=== PATIENT | female | born 1985 | race Caucasian/White ===

== ENCOUNTER 2022-04-02 01:56 | Day surgery (SDC) | payer OTHER, SELFPAY ==
[2022-03-20 12:38] VITALS: BMI 41.5
--- NOTE | 2022-03-20 12:44 | PC.NURSE ---
Report to the Outpatient Waiting Room, entrance under the green pavilion located off [facility], at time 0830 on date 04/02/22. Planned Procedure Time: 1030. Time changes happen often and if your time is changed the preop area will call you the afternoon before. - You and your visitor will be asked to self-screen and do not enter if you have any COVID symptoms. - Only one visitor is requested with a max of two and NO children visitors are allowed at this time. - The patient visitor may be requested to leave or wait in car when not with patient due to distancing restrictions. - A mask is REQUIRED within the hospital. Patients may have clear liquids (water, carbonated beverages, clear teas, apple juice) until 3 hours prior to surgery with a maximum of 20 ounces. - No food from midnight until time of surgery Take the following medications with a SIP of water the morning of surgery: NONE Medications to discontinue per physician: N/A Date to take last dose: N/A Please no make-up, nail swedish, hairspray, perfume, deodorant, or body powder the day of surgery. No jewelry (including any body piercings) or valuables the day of surgery, leave them at home. Please take a shower or bath the night before, or the morning of, surgery with an antibacterial soap. Wear comfortable, loose fitting clothing. - Jewelry must be removed prior to entering the operating room. Rings and piercings that are not removed may be cut off. - The hospital will not accept responsibility for valuables. - Please leave all valuables, including medications, at home the day of surgery. If you are going home after surgery, a licensed cdl bulk driver must drive you home. - NO public transportation without another adult if you receive anesthesia. - We recommend that an adult stay with you for 24 hours following discharge. - We also recommend that you do not drive, make important decision, drink alcoholic beverages, or take any drugs that were not prescribed by your health care provider for at least 24 hours after your discharge time. Follow any additional instructions given to you from your surgeon. If you or anyone in your household have experienced Covid symptoms in the past week, please notify your surgeon or the nurse liaison at the phone number below for possible testing. Telephone instructions given to PT - CRISTIANO ALVARADO and asked if any additional questions and then verbalized understanding. Patient advised to call surgeon office or pre surgery nurse liaison [phone] if any additional questions.
--- NOTE | 2022-04-01 11:20 | PM.IMHP ---
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 She has been on Ogestrel for like 20 years in a continuous fashion. She moved to the [place] during and did not establish care with an OBGYN. She has been seeing a PCP who started her on Sprintec since about 2019. She reports it was doing ok; started having some regular cycles every 3 weeks (but was skipping placebo); but the bleeding has gotten worse since this summer; now bleeds more than not. She reports a h/o significant pain (cannot take ibuprofen due to significant facial swelling) and that multiple family members have endometriosis and underwent hysterectomies. She does not desire children. She has been sexually active in the past; not currently. She reports a h/o HPV about 6yrs ago; paps have been normal since. She is not wanting to stop hormones as she reports severe pain, body aches, low grade fevers when she's off of it. She has not had blood work or US in many years. Labs were performed and showed mildly elevated TSH, normal hormones otherwise. US showed an endometrial strip of 1cm that was irregular; bulbous uterus. Review of Systems Constitutional: Constitutional: Denies chills, Denies fever(s) and Denies headache(s) Eyes: Eyes: Denies change in vision ENT: Denies dizziness and Denies headache(s) Cardiovascular: Cardiovascular: Denies chest pain and Denies dyspnea Respiratory: Respiratory: Denies cough and Denies dyspnea Gastrointestinal: Gastrointestinal: Denies abdominal pain and Denies change in stool character Genitourinary: Genitourinary: Reports abnormal menses, Reports abnormal vaginal bleeding, Reports menorrhagia, Reports dysmenorrhea, Reports pelvic pain, Denies vaginal discharge, Denies vaginal odor and Denies vaginal pruritus Neurologic: Denies dizziness and Denies headache(s) Psychiatric: Psychiatric: Denies anxiety and Denies depression [facility] Past Medical History Medical History (Updated 02/05/22 @ 08:51 by Kadi Wright MA) Anxiety Asthma Depression Irregular bleeding Low TSH level Surgical History Surgical History S/P tonsillectomy Family History Family History Mother Endometriosis Multiple sclerosis Father Malignant neoplasm of prostate Other Breast cancer Social History Social History (Updated 01/29/22 @ 09:34 by Kadi Wright MA) Smoking status: Never smoker Alcohol intake: current Drinks per week: 1 Alcohol use details: VERY RARE Substance use: never Substance use type: does not use Lack of Transportation: No Lack of Food: Never True Current Housing: Decline to Answer Concerned About Future Housing: Decline to Answer Difficulty Paying Gas/Electric Bills: Decline to Answer Difficulty Paying for Meds: Decline to Answer Currently Unemployed: Decline to Answer Education: Master's Degree or Higher Difficulty w/ Childcare or Family Care: Decline to Answer Living arrangements: alone 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 Gender identity (if verbalized by the patient): Female Sexual Orientation (if Verbalized by the Patient): Bisexual Spiritual care concerns: No Meds Home Medications and Allergies Home Medications Medication Instructions Recorded Confirmed Type montelukast 10 mg tablet 10 mg PO DAILY 01/29/22 03/20/22 History norgestrel 0.3 mg-ethinyl 1 tablet PO DAILY #168 tabs 02/05/22 03/20/22 Rx estradiol 30 mcg tablet (Low-Ogestrel (28)) fluticasone propionate 50 1 spray intranasal Q12H 03/20/22 03/20/22 History mcg/actuation nasal spray,suspension Allergies Allergy/AdvReac Type Severity Reaction Status Date / Time amoxicillin Allergy Severe Rash Verified 03/20/22 12:3
--- NOTE | 2022-04-02 08:12 | WPDHPUPDATE1 ---
History and Physical Update Update Date/Time: 04/02/22 08:12 History and Physical has been reviewed, including an updated exam of the patient. There are NO changes in the patient's condition. Risks, benefits, and alternatives have been discussed and questions answered. Patient agrees to proceed with procedure.
--- NOTE | 2022-04-02 08:42 | WPDANESEPPF ---
Anes - Initial Pre Proc Eval Procedure: Operation Date: 04/02/22 10:30 Proposed Procedures p Hysteroscopy with Dilation and Curettage - Anupama Robles MD Date/Time: 04/02/22 08:42 Surgeon: Anupama Robles MD Pre Op Diagnosis: Menometrorrhagia Patient Data Age: 36 Gender: F Height: 1.7 m Weight: 120.2 kg Allergies Allergy/AdvReac Type Severity Reaction Status Date / Time amoxicillin Allergy Severe Rash Verified 03/20/22 12:36 ibuprofen Allergy Severe Swelling Verified 03/20/22 12:36 of Lip/Tongue/Throat Penicillins Allergy Severe Rash Verified 03/20/22 12:36 Home Medications Medication Instructions Recorded Confirmed Type montelukast 10 mg tablet 10 mg PO DAILY 01/29/22 03/20/22 History norgestrel 0.3 mg-ethinyl 1 tablet PO DAILY #168 tabs 02/05/22 03/20/22 Rx estradiol 30 mcg tablet (Low-Ogestrel (28)) fluticasone propionate 50 1 spray intranasal Q12H 03/20/22 03/20/22 History mcg/actuation nasal spray,suspension Patient hx anesthesia problems: none Family hx anesthesia problems: none Results Review: All pre-operative results and documents have been reviewed as part of the pre-operative evaluation. [facility] Past Medical History Medical History (Updated 04/02/22 @ 08:43 by Travis Alarcon MD) Anxiety Asthma Depression Irregular bleeding Low TSH level Morbid obesity Surgical History Surgical History S/P tonsillectomy Family History Family History Mother Endometriosis Multiple sclerosis Father Malignant neoplasm of prostate Other Breast cancer Social History Social History Smoking status: Never smoker Alcohol intake: current Drinks per week: 1 Alcohol use details: VERY RARE Substance use: never Substance use type: does not use Lack of Transportation: No Lack of Food: Never True Current Housing: Decline to Answer Concerned About Future Housing: Decline to Answer Difficulty Paying Gas/Electric Bills: Decline to Answer Difficulty Paying for Meds: Decline to Answer Currently Unemployed: Decline to Answer Education: Master's Degree or Higher Difficulty w/ Childcare or Family Care: Decline to Answer Living arrangements: alone 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 Gender identity (if verbalized by the patient): Female Sexual Orientation (if Verbalized by the Patient): Bisexual Spiritual care concerns: No Anes - Eval Final PreProcedure Day of Procedure 04/02/22 08:42 Patient weight: morbidly obese Heart: regular rate and rhythm Lungs: clear to auscultation Airway: Mallampati scale class II Neurological: alert and oriented Last oral intake: >/= 8 hours ASA classification: III Emergent: no Anesthetic plan: proceed Anesthesia type and monitoring: general GIVS and standard monitoring Results Review: All pre-operative results and documents have been reviewed as part of the pre-operative evaluation. Informed Consent: The patient's anesthetic plan and its attendant risks and benefits were discussed with the patient/family/POA. Questions were solicited and answers provided to the satisfaction of the patient/family/POA.
[2022-04-02 08:55] VITALS: BP 141/95; PULSE 87; RESP 14; TEMP 36.9; O2SAT 99
[2022-04-02] MEDS: LACTATED RINGERS 1,000 ML 30 ML IV CONT (08:55)
--- NOTE | 2022-04-02 09:29 | W.PM.PROC2 ---
Procedure Note - Detailed Date of Procedure 04/02/22 Pre-op Diagnosis Menometrorrhagia Post-op Diagnosis Same Procedure Performed Hysteroscopy with D&C Surgeon Anupama Robles MD Anesthesia MAC Findings Uterus 11cm; thickened, polypoid endometrium noted mostly on posterior uterine wall. Bilateral tubal ostia visualized. Normal cervix. Good hemostasis at end of case. Fluid deficit 50cc. Description of Procedure Rama was taken to the operating room where she was placed under sedation without complications. She was then prepped and draped in the usual sterile fashion in the dorsal lithotomy position with her legs in low Samm stirrups. A time-out was performed and no perioperative antibiotics were indicated. A bivalve speculum was placed within the vagina where the cervix was easily identified. The anterior lip of the cervix was grasped with a single-tooth tenaculum. The uterus was sounded. The cervix was then serially dilated to allow for the hysteroscope. The hysteroscope was advanced into the uterine cavity with the above findings noted. A curettage was then performed until a good uterine cry was felt throughout the uterus. The hysteroscope was once again advanced into the uterine cavity where it was noted to be normal. Good hemostasis was noted. All instruments were removed from the vagina. Sponge, lap, instrument, and needle counts were correct at the end of the procedure. Patient was awoken from anesthesia and taken to recovery with plans of same-day discharge home. Estimated Blood Loss 5 Pathology Yes (endometrial curettings) Complications No immediate complications Condition Stable Disposition Same day [facility] Billing Surgery - Charge Forward: Surgery Billing
[2022-04-02 09:30] VITALS: BP 120/80; PULSE 88; RESP 16; O2SAT 95
[2022-04-02 10:00] VITALS: BP 125/87; PULSE 80; RESP 16; O2SAT 96
[2022-04-02 10:25] VITALS: BP 133/83; PULSE 74; RESP 16
[2022-04-02] MEDS: NAPROXEN SODIUM 220 MG TABLET PO (10:25)
== END 2022-04-02 10:42 | disposition home or self-care (01) ==
PROVIDERS: Visit Provider Obstetrics & Gynecology
PROC: 0U5B8ZZ Destruction of Endometrium, Via Natural or Artificial Opening Endoscopic (ICD-10-PCS; CPT 58563; principal; 2022-04-02 10:30)
DX: N92.1 Excessive and frequent menstruation with irregular cycle (principal); N84.0 Polyp of corpus uteri; R10.2 Pelvic and perineal pain; G89.29 Other chronic pain; J45.909 Unspecified asthma, uncomplicated; E66.01 Morbid (severe) obesity due to excess calories; Z68.41 Body mass index [BMI] 40.0-44.9, adult
CPT/HCPCS: 58558; 88305; A9270; J0131; J1100; J2250; J2405; J2704; J3010; J7030; J7120

== ENCOUNTER 2022-05-28 09:40 | Outpatient (CLI) | payer OTHER, SELFPAY ==
[2022-05-28 20:23] LABS: Free T4 Free Thyroxine 0.96 ng/mL (0.78-2.19)
[2022-06-01 05:14] LABS: Thyroid Peroxidase Antibodies 839 IU/mL (<9)
== END 2022-05-28 09:41 | disposition home or self-care (01) ==
LOC: ANHWCLAB 09:40
PROVIDERS: Visit Provider Internal Medicine Endocrinology, Diabetes & Metabolism
DX: E03.8 Other specified hypothyroidism (principal); E04.9 Nontoxic goiter, unspecified
CPT/HCPCS: 36415; 84439; 84443; 84481; 86376

== ENCOUNTER 2024-11-09 12:24 | Outpatient (CLI) | payer OTHER, SELFPAY ==
--- NOTE | ~2024-11-09 | MM_ITS ---
EXAMINATION: MM screening gin BI w zena HISTORY: Screening mammogram TECHNIQUE: Craniocaudal and mediolateral oblique 3-D tomosynthesis images were obtained and synthetic 2-D images were generated. CAD analysis was submitted and interpreted. COMPARISON: No prior mammogram is available for comparison at this institution. BREAST PARENCHYMAL COMPOSITION:Not Dense. There are scattered areas of fibroglandular density. FINDINGS: No suspicious mass, calcification, or architectural distortion are identified in either sheeba ast to suggest malignancy. There has been no suspicious interval change. IMPRESSION: No mammographic evidence of malignancy. Recommend routine screening mammography in one year. BI-RADS Category 1: Negative Reviewed, dictated and finalized at location .
--- OUTSIDE RECORDS SUMMARY | 2024-11-09 13:12 | XMS_ITS | Clinical Summary ---
Author Organization [facility] Address [address] [place] [address] Care Team Providers Care Glassine Machine Tender Name Role Phone Unavailable Primary Care Provider Unavailabl e Source Comments [facility],non-owned Affiliates and Associated Physician Practices is amultiple site organization consisting of ambulatory clinics and hospital sitesin [place], [place], [place] and [place]. This disclosure is being madepursuant to the Care Everywhere program and may not contain all information available regarding this patient. Last updated 17.[email or web address] [email or web address] Social History Tobacco Use Types Packs/Day Years Used Date Smoking Tobacco: Never Assessed Comments Unknown Sex and Gender Information Value Date Recorded Sex Assigned at Not on file Legal Sex Female 2:46 PM CDT Gender Identity Not on file Sexual Orientation Not on file Plan of Treatment Health Maintenance Due Date Last Done Comments LIPID TESTING 1984 MAMMOGRAM 1984 HIV SCREENING 08/08/1999 HEPATITIS C SCREENING 08/03/2002 DTAP/TDAP/TD VACCINES (1 - Tdap) 08/08/2003 HEPATITIS B VACCINE (1 of 3 - 19+ 3-dose series) 08/08/2003 PAP SMEAR 2005 HPV VACCINE (1 - 3-dose SCDM series) 08/08/2011 COVID-19 VACCINE ( - 2023-2 5 season) 2023 DEPRESSION SCREENING 03/25/2024 INFLUENZA VACCINE (#1) 2024 ZOSTER VACCINE (1 of 2) 2034 HIB VACCINE Aged Out No longer eligi ble based on patient's age to complete this topic MENINGOCOCCAL (Group B) VACC INE SHARED DECISION-MAKING Aged Out No longer eligibl e based on patient's age to complete this topic MENINGOCOCCAL GROUPS A/C/Y/W VACCINE Aged Out No longer eligible b ased on patient's age to complete this topic PNEUMOCOCCAL VACCINE Aged Out No long er eligible based on patient's age to complete this topic Insurance
--- OUTSIDE RECORDS SUMMARY | 2024-11-09 13:12 | XMS_ITS | Clinical Summary ---
Author Organization [facility] Address [address] [place] [address] Care Team Providers Care Bomb Squad Officer Name Role Phone Unavailable Primary Care Provider Unavailabl e Allergies Active Allergy Reactions Criticality Noted Date Comments Cephalexin Hives High 04/05/2019 Ibuprofen Swelling High 04/05/2019 Medications Sprintec, 28, 0.25-35 mg-mcg tablet 12/17/2019 Active montelukast (SINGULAIR) 10 mg tablet TAKE 1 TABLET BY MOUTH EVERY DAY 10/15/2019 Active ProAir RespiClick 90 mcg/actuation metered powder inhaler INHALE 2 PUFFS 4 TIMES A DAY NEEDED 10/15/2019 Active Active Problems No known active problems Social History Tobacco Use Types Packs/Day Years Used Date Smoking Tobacco: Never Smokeless Tobacco: Never Alcohol Use Standard Drinks/Week Comments Never 0 (1 standard drink = 0.6 oz pur e alcohol) Comments No Sex and Gender Information Value Date Recorded Sex Assigned at Not on file Legal Sex Female 9:21 AM COMMUNITY WORKER Gender Identity Not on file Sexual Orientation Not on file Last Filed Vital Signs Vital Sign Reading Time Taken Comments Blood Pressure 125/87 04/04/2021 6:17 PM COMMUNITY WORKER Pulse 93 04/04/2021 6:17 PM COMMUNITY WORKER Temperature 36.8 C (98.2 F) 04/04/2021 6:17 PM COMMUNITY WORKER Respiratory Rate 16 04/04/2021 6:17 PM COMMUNITY WORKER Oxygen Saturation 97% 04/04/2021 6:17 PM COMMUNITY WORKER Inhaled Oxygen Concentration - - Weight 113.4 kg (250 lb) 04/04/2021 6:17 PM COMMUNITY WORKER Height 170.2 cm (5' 7) 04/04/2021 6:17 PM COMMUNITY WORKER Body Mass Index 39.16 04/04/2021 6:17 PM COMMUNITY WORKER Plan of Treatment Health Maintenance Due Date Last Done Comments HPV VACCINES (1 - 3-dose series) 08/08/1999 DTAP/TDAP/TD VACCINES (1 - Tdap) 08/08/2003 HEPATITIS B VACCINES (1 of 3 - 19+ 3-dose series) 07/23 HPV/Cotest (21-29) 2005 CERVICAL CANCER SCREENING 2014 HPV/Cotest (30-65) 2014 PAP SMEAR 2014 BREAST CANCER SCREENING 2024 INFLUENZA VACCINE (#1) 2024 Insurance [facility]US [facility] OPT[employer] PPO [id number]
--- OUTSIDE RECORDS SUMMARY | 2024-11-09 13:12 | XMS_ITS | Encounter Summary ---
Author Organization [facility] Address [address] [place] [address] Care Team Providers Care Fish And Wildlife Scientific Aid Name Role Phone Unavailable Primary Care Provider Unavailabl e Reason for Visit * Reason Onset Date Comments Labs Only 12/20/2019 Encounter Details Date Type Department Care Team (Late st Contact Info) Description 12/20/[address] [facility] [address] [address] Migue Tobias (), RT Labs Only Social History Tobacco Use Types Packs/Day Years Used Date Smoking Tobacco: Never Smokeless Tobacco: Never Comments No Sex and Gender Information Value Date Recorded Sex Assigned at Not on file Legal Sex Female 9:21 AM MIS DIRECTOR Gender Identity Not on file Sexual Orientation Not on file documented as of this encounter Plan of Treatment Not on file documented as of this encounter Visit Diagnoses Not on filedocumented in this encounter Additional Health Concerns Infection Onset Date Last Indicated Resolved Time R/O COVID-19 12/18/2019 12/18/2019 12/20/2019 3:52 PM CDT R/O COVID-19 01/04/2020 01/04/2020 01/06/2020 8:00 PM CDT R/O COVID-19 04/04/2021 04/04/2021 04/07/2021 3:20 AM MIS DIRECTOR documented as of this encounter
--- OUTSIDE RECORDS SUMMARY | 2024-11-09 13:12 | XMS_ITS | Patient Health Record ---
Author Organization [facility] Address [address] [place], [place] [address] Care Team Providers Care Seismic Prospecting Observer Name Role Phone Fernanda Whitman Primary Care Provider Unavailgin e Tj Lima Unavailable [phone] Allergies Allergen (clinical drug ingredient) Drug/Non Drug Allergy documented on EMR Reaction Allergy Type Onset Date Status cephalexin Cephalexin rash Drug Allergy Activ e ibuprofen Ibuprofen anaphylaxis Drug Allergy Activ e HPV Quadrivalent Vaccine rash Drug Allergy Active Reason For Referral No Information Medications Medication SIG (Take, Route, Frequency, Duration) Notes Start Date End Date Status metroNIDAZOLE 0.75 % INSERT 1 APPLICATOR FUL VAGINALLY EVERY WEEK NEEDED Vaginal; Duration: 30 Active Qsymia 7.5-46 MG 1 capsule Orally Onc e a day Active Montelukast Sodium 10 mg TAKE ONE TABLET BY MOUTH EVERY EVENING; Duration: 30 Active Ogestrel 0.5-50 MG-MCG TAKE 1 TABLET BY MOUTH EVERY DAY TAKE ACTIVE TABS ON A CONTINUOUS BASIS Oral; Duration: 21 Active Flonase Allergy Relief 50 MCG/ACT 2 sprays each nostril Nasally Once a day Active Saline 0.9 % as directed once a day Active Pantoprazole Sodium 40 MG TAKE 1 TABLET (40 MG TOTAL) BY MOUTH DAILY. Oral Active CPAP DX: SARA G47.33 as directed SETTIN GS: 5-15cm H20 fit for mask SIG DATE: During sleep nightly for the treatment of sleep apnea; Duration: lifetime Active Levalbuterol Tartrate 45 MCG/ACT 2 puffs Inhalation every 4 hrs as needed; Duration: 30 Active Arleth Allergy 180 MG 1 tablet as neede d Orally Once a day Active Immunizations Vaccine Route Administration Date Status Comme nts Flucelvax Quadrivelant (Commerical) Unknown 01/06/2018 Administered Zz Flucelvax Quadrivelant 2017 Unknown 02/06/2017 Admin istered Zz Flucelvax Quadrivelant 2017 Unknown 04/04/2017 Admin istered Problems Problem Type SNOMED Code ICD Code Onset Dates Problem Status W/U Status Risk Notes Problem Allergic rhinitis caused by pollen (disorder) (40463042) Allergic rhinitis due to pollen (J30.1) Active confirmed Problem Chronic rhinitis (57658430) Chronic rhinitis (J31.0) Active confirmed Problem Cough (08156833) Cough (R05) Active confirmed Problem Allergic rhinitis (83965225) Allergic rhinitis (J30.9) Active confirmed Problem Hypersomnia (40083441) Hypersomnia (G47.10) Active confirmed Problem Gastroesophageal reflux disease (852952872) GERD (gastroesophage al reflux disease) (K21.9) Active confirmed Problem Mild intermittent asthma (457693011) Mild intermittent asthma (J45.20) Active confirmed Problem Obesity (069688550) Obesity (E66.9) Active conf irmed Problem Allergic rhinitis caused by animal hair and dander (499069321491094) Allergic rhinitis due to cats (J30.81) Active confirmed Problem Allergic rhinitis (31825587) Allergic rhinitis due to dust mite (J30.89) Active confirmed Problem Food allergy (628096611) Food allergy (Z91.018) Active confirmed Problem Obstructive sleep apnea syndrome (90302846) SARA (obstructive sleep apnea) (G47.33) Active confirmed Plan Of Treatment Pending Test Test Name Order Date ALLERGEN PALM OIL, IGE 09/20/2017 Sleep Home Sleep Testing 04/04/2017 Insurance Providers Payer Name Payer Address Payer Phone Subscriber Number Group Number Insured Name Patient Relationship to Insured Coverage Start Date Coverage End Date [facility] [address] [place] [address] [id number] [employer] Self - patient is the insured Medical (General) History Medical History History ICD Code Asthma GERD (gastroesophageal reflux disease) Obesity Chronic rhinitis Surgical History Surgery Date(Month/Year) [place] tooth extraction Cyst removal from ear lobe
--- OUTSIDE RECORDS SUMMARY | 2024-11-09 13:12 | XMS_ITS | Encounter Summary ---
Author Organization [facility] Address [facility] access [facility] [place] [address] Care Team Providers Care Telegraph Repeater Installer Name Role Phone Katie Iqbal MD Primary Care Provider [phone] Iveth Gerardo MD Primary Care Provider [phone] Encounter Details Date Type Department Care Team (Late st Contact Info) Description 09/19/2022 MyChart Message [facility] - [address] [id number] [employer] Provider Air Quality Message Social History Tobacco Use Types Packs/Day Years Used Date Smoking Tobacco: Never Smokeless Tobacco: Never Alcohol Use Standard Drinks/Week Comments Yes 0 (1 standard drink = 0.6 oz pur e alcohol) RARELY PHQ-2 Answer Date Recorded Patient Health Questionnaire-2 Score 1 09/19/2022 Comments Unknown Sex and Gender Information Value Date Recorded Sex Assigned at Female 04/10/2024 10:22 AM ANNEALING OPERATOR Legal Sex Female 11:07 AM ANNEALING OPERATOR Gender Identity Not on file Sexual Orientation Not on file documented as of this encounter Functional Status * Over the past 2 weeks, how often have you been bothered by any of the following problems? Question Answer Date of Assessment Author Status Little interest or pleasure in doing things Not at all 09/19/2022 8:07 AM Prudence Ortiz M A Active Feeling down, depressed, or hopeless Several days 09/19/2022 8:07 AM Prudence Ortiz MA Active Patient Health Questionnaire-2 Score 1 09/19/2022 8:07 AM Prudence Ortiz MA A ctive * Question Answer Date of Assessment Author Status Trouble falling or staying asleep, or sleeping too much Nearly every day 09/19/2022 8:07 AM Prudence Ortiz MA Active Feeling tired or having little energy Nearly every day 09/19/2022 8:07 AM Prudence Ortiz MA Active Poor appetite or overeating Several days 09/19/2022 8:07 AM Prudence Ortiz MA Active Feeling bad about yourself - or that you are a failure or have let yourself or your family down Not at all 09/19/2022 8:07 AM Prudence Ortiz MA Active Trouble concentrating on things, such as reading the newspaper or watching television Several days 09/19/2022 8:07 AM Prudence Ortiz MA Active Moving or speaking so slowly that other people could have noticed? Or the opposite - being so fidgety or restless that you have been moving around a lot more than usual. Not at all 09/19/2022 8:07 AM Prudence Ortiz MA Active Thoughts that you would be better off or hurting yourself in some way Not at all 09/19/2022 8:07 AM Prudence Ortiz MA Active Patient Health Questionnaire-9 Score 9 09/19/2022 8:07 AM Prudence Ortiz MA Active * If you checked off any problems on this questionnaire so far, Question Answer Date of Assessment Author Status How difficult have these problems made it for you to do your work, take care of things at home, or get along with other people? Not difficult at all 09/19/2022 8:07 AM Prudence Ortiz MA Active documented as of this encounter Plan of Treatment Upcoming Encounters Date Type Department Care Team (Late st Contact Info) Description 12/07/2024 9:40 AM [place] Office Visit [facility] Family Medicine - [address], [address] [place] [id number] Iveth Gerardo MD [address] [facility] [address] [place] [address] documented as of this encounter Visit Diagnoses Not on filedocumented in this encounter Additional Health Concerns Assessment Noted Time PHQ-9 Depression Total Score: 9 09/20/19 23 8:07 AM CDT documented as of this encounter Care Teams Telegraph Repeater Installer Relationship Specialty Start Date End Date Katie Iqbal MD [facility] [place] [address] PCP - General FAMILY PRACTICE 08/17/22 04/07/24 Iveth Gerardo MD [facility] [address] [address] PCP - General 04/08/24 documented as of this encounter
--- OUTSIDE RECORDS SUMMARY | 2024-11-09 13:12 | XMS_ITS | Continuity of Care Document ---
Author Organization [facility] Address [address] [place] [address] Phone Care Team Providers Care Flaker Operator Name Role Phone Celestino HALEY, Martha Unavailable Unavailabl e Allergies, Adverse Reactions, Alerts Substance Reaction Status Criticality Cephalosporins Active No Informatio n ibuprofen Active No Information Medications Medication Instructions Dosage Effective Dates (start - stop) Status Comments fexofenadine 180 mg tablet take 1 tablet by oral route every day 180 MG - Active Flonase Allergy Relief 50 mcg/actuation nasal spray,suspension inhale 2 spray by intranasal route every day in each nostril 100 MCG - Active PRILOSEC (unknown strength) take 2 packet by oral route every day mixed with 30 ml water, let sit 2-3 minutes, stir and drink within 30minutes Not Available - Active Ogestrel (28) 0.5 mg-50 mcg tablet take 1 tablet by oral route every day - Active montelukast 10 mg tablet take 1 tablet by oral route every day in the evening 10 MG - Active Procedures Procedure Date IMMUNIZATION ADMIN FLU VACC 4 DELMER 3 YRS PLUS IM BREATHING CAPACITY TEST OFFICE/OUTPATIENT VISIT NEW Advance Directives Directive Yes / No Effective Date File Name No Information Encounters Encounter Description Practice Location Reason(s) For Visit Diagnoses Date Provider Providers Copied on Encounter [facility] , [address], [place], [address], [place] tel:[phone] [facility] No Information 9 Celestino Thomas. [address], [place], [place], [id number]. tel:[phone] OFFICE/OUTPA TIENT VISIT NEW [facility] , [address], [place], [address], tel:[phone] [facility] allergy evaluation (chief complaint) Body mass index (BMI) 32.0-32.9, adultAcute allergic rhinitis due to pollenAllergic rhinitis due to animal hair and danderOther allergic rhinitisModera te persistent asthma without complicationSl eep apnea in adult 201 9 Celestino Hamsa. [address], [place], [place], [id number]. tel:[phone] Family History Family Member Type Diagnosis Age At Onset Mother Problem (finding) depression Mother Problem (finding) hypercholesterolemia Mother Problem (finding) Thyroid disorder Mother Problem (finding) hypertension Immunizations Vaccine Date Status Comments influenza, injectable, quadrivalent, (3 years or older) administered Source: New Immuniza tion Record Payers Payer name Insurance type Covered green party ID Authoriza tion(s) [facility] Choice/Choice Plus E2 [id number] [facility] Choice/Choice Plus E2 [id number] Social History Type Description Quantity Date Captured Comments Alcohol Use Details Unknown Caffeine Use Details Unknown Tobacco Use Status No Information Smoking Status No Information Sex Female Chief Complaint And Reason For Visit No Information Reason For Referral Reason For Referral No Information History Of Present Illness Encounter Date Complaint History Of Prese nt Illness allergy evaluation Patient just moved to [place] from [place]. While in [place] she was getting allergy injections and has built up to maintenance every four weeks. She has two more weeks for her injections. Patient has severe allergies tested by blood test-could not be skin tested because she could not stay off her medications. Other than mild local reaction she has no other side effects from the allergy injections and they have been helping her a whole lot. Prior to beginning allergy injections- sHe would break out into hives and on a regular regimen of allergy injections that is gone. SHe started injections June 2017. Asthma is mainly exercise induced,With the cold air exposure and with the humid air quality. She does not smoke. She currently lives in an apartment with two cats. There is carpet in the bedroom. 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 Functional Status Date Functional Assessmen t No Information Instructions Date Instruction Additional Infor mation Giving encouragement to exercise Related to Body mass index (BMI) 32.0-32.9, adult Dietary needs education Related to Body mass index (BMI) 32.0-32.9, adult Assessments Type Assessment Date No Information Patient Care Teams Name Effective Dates (start - stop) Status Members No Information
--- OUTSIDE RECORDS SUMMARY | 2024-11-09 13:12 | XMS_ITS | Encounter Summary ---
Author Organization [facility] Address [address] [place] [address] Care Team Providers Care Carpet Installation Specialist Name Role Phone Unavailable Primary Care Provider Unavailabl e Encounter Details Date Type Department Care Team (Late st Contact Info) Description 12/17/2021 [facility] Outpatient Visit [facility] [address] [place] [address] Document, Scanned Social History Tobacco Use Types Packs/Day Years [...]
== END 2024-11-09 12:25 | disposition home or self-care (01) ==
LOC: CHSIMG 12:28
PROVIDERS: Visit Provider Obstetrics & Gynecology
DX: Z12.31 Encounter for screening mammogram for malignant neoplasm of breast (principal)
CPT/HCPCS: 77063; 77067